=== PATIENT | male | born 1950 | race Caucasian/White ===

== ENCOUNTER 2016-08-19 13:42 | Inpatient (IN) | payer MEDICARE ==
[~2016-08-19] VITALS: Ht 175.3 cm; Wt 69.4 kg
--- NOTE | 2016-08-19 13:42 | NUR ---
Patient is accepted by Dr Hein & Dr Aaron Snell for geriartric psych admission. This patient is on 5150 psych HOLD for gravely disabled since 1145 today.
[2016-08-19] MEDS ORDERED: LOPE-156 PO (13:55)
[2016-08-19] MEDS ORDERED: LORA0.5T PO (13:55)
[2016-08-19] MEDS ORDERED: METF500T4 PO (13:55)
[2016-08-19] MEDS ORDERED: HYDR12.5 PO (13:55)
[2016-08-19] MEDS ORDERED: ENAL2.5T PO (13:55)
[2016-08-19] MEDS ORDERED: AMIT25TA9 PO (13:55)
[2016-08-19] MEDS ORDERED: ZOLP10TA6 PO (13:55)
[2016-08-19] MEDS ORDERED: GLIP10TA11 PO (13:55)
[2016-08-19] MEDS ORDERED: FLUP5TAB PO (13:55)
[2016-08-19] MEDS ORDERED: AMLO10TA4 PO (13:55)
[2016-08-19] MEDS ORDERED: DEXA4TAB PO (13:55)
--- NOTE | 2016-08-19 13:57 | NUR ---
1345- Medically cleared by Dr Quita Barahona. Nursing hands off report given to RN Zenda, pending admitting papers from ER registration [facility] at this time
--- NOTE | 2016-08-19 14:09 | NUR ---
Parents x2 are at bedside.
--- NOTE | 2016-08-19 14:22 | NUR ---
Patient voided by urinal, no acute change in condition seen- still waiting for admitting papers from ER regiatration staff [facility]
--- NOTE | 2016-08-19 14:30 | NUR ---
Received pt here in [facility]. Pt alert and oriented x 3. Pt very anxious. Pt states "IM already . Burry me alive now. Just give me the cyanide." Noted skin tear on left lower extremity 1 1/2 x 1cm x 0cm, scab on left buttocks thats dried up, and dulce knee redness. Pt denies any c/o pain. Pt was showered by DESULPHURING OPERATOR due to pt has very dirty foot and disheveled look. forest and conservation worker jhonatan done, wound care consult done, Called pt liliana choudhary and verified that pt refused pnm and flu vaccine.
[2016-08-19] MEDS ORDERED: MAGNESIUM HYDROXIDE 30 ML LIQUID UDC PO PRN (15:00)
[2016-08-19] MEDS ORDERED: MAG HYDROX/AL HYDROX/SIMETH 30 ML LIQUID UDC PO PRN (15:00)
[2016-08-19 15:01] VITALS: BP 130/69
[2016-08-19] MEDS ORDERED: LOPERAMIDE HCL 2 MG CAPSULE PO PRN (17:15)
--- NOTE | 2016-08-19 18:00 | NUR ---
Pt states "i dont want to im getting social security." Pt has good appetite. Second call made by SELENE to dr jesús enrique for admitting orders. Pt is in no acute distress. Call light is within reach. Pt ambulatory with good gait and balance.
[2016-08-19] MEDS: METFORMIN HCL 500 MG TABLET PO SCH (18:09)
--- NOTE | 2016-08-19 20:07 | NUR ---
patient received resting comfortably in bed. observed to be disorganized, states "I smoked 20 cigarettes, I am already ". Insight and judgement poor. No aggressive or combative behavior noted. Pressured speech. Refuse vital signs despite education. No acute distress noted. Safety measures maintained.
[2016-08-19] MEDS: TEMAZEPAM 7.5 MG CAPSULE PO PRN (22:53)
[2016-08-19 23:50] VITALS: BP 155/102
[2016-08-19] MEDS: ACETAMINOPHEN 325 MG TABLET PO PRN (23:55)
[2016-08-19] MEDS: CLONAZEPAM 0.5 MG TABLET PO PRN (23:55)
--- NOTE | 2016-08-19 23:55 | NUR ---
PATIENT OBSERVED TO BE ANXIOUS AND RESTLESS, PATIENT ALSO PACING UNIT AND SOMEWHAT IRRITABLE. PT GIVEN KLONOPIN AND TYLENOL PRN ORDERED. COMFORT MEASURES PROVIDED. PATIENT ASSISTED TO CHAIR IN NEAR NURSING STATION. WILL CONTINUE TO MONITOR FOR SAFETY.
[2016-08-20 01:10] VITALS: BP 131/61
--- NOTE | 2016-08-20 01:13 | NUR ---
PATIENT VOMITING EPISODE X1, OBSERVED TO BE MOSTLY WATER VOMITED. B/P CHECKED 131/60 HEART RATE 74. OBSERVED TO BE LESS ANXIOUS. AWAITING CALL BACK FROM MD.
--- NOTE | 2016-08-20 01:22 | NUR ---
MD MADE AWARE OF PATIENT STATUS, ORDERED CBC, CMP, TROPONIN, MAGNESIUM AND PHOSPHORUS LABS IN AM.
--- NOTE | 2016-08-20 03:00 | NUR ---
PATIENT REMAINS AWAKE, PACING AND ANXIOUS. NO AGGRESSIVE OR COMBATIVE BEHAVIOR. WILL CONTINUE TO MONITOR FOR SAFETY.
[2016-08-20] MEDS: CLONAZEPAM 0.5 MG TABLET PO PRN ×2 (06:16→12:25)
[2016-08-20] MEDS: glipiZIDE 10 MG TABLET PO SCH ×2 (07:30→18:24)
[2016-08-20 07:46] LABS: BASOPHILS % (AUTO) 0.3 % (0.0-2.0); EOSINOPHILS # (AUTO) 0.1 K/uL (0.0-0.7); EOSINOPHILS % (AUTO) 0.9 % (0.0-7.0); HEMATOCRIT 41.3 % (40-50); HEMOGLOBIN 14.4 G/DL (14.0-18.0); LYMPHOCYTES # (AUTO) 1.3 K/UL (0.8-4.8); LYMPHOCYTES % (AUTO) 8.3 % (20.5-51.5); MEAN CORPUSCULAR HEMOGLOBIN 30.9 UUG (27.0-31.0); MEAN CORPUSCULAR HGB CONC 35 g/dL (32.0-37.0); MEAN CORPUSCULAR VOLUME 88.7 FL (82.0-92.0); MONOCYTES # (AUTO) 0.9 K/UL (0.1-1.30); MONOCYTES % (AUTO) 6.1 % (0.0-11.0); NEUTROPHILS # (AUTO) 12.9 K/UL (1.8-8.9); NEUTROPHILS % (AUTO) 84.4 % (38.5-71.5); PLATELET COUNT (AUTO) 414 K/UL (150-450); RED BLOOD CELL COUNT(AUTO) 4.65 MIL/UL (4.7-6.1); WHITE BLOOD COUNT (AUTO) 15.2 K/UL (4.0-11.2)
[2016-08-20 07:48] VITALS: BP 140/62
[2016-08-20 08:07] LABS: BILIRUBIN,TOTAL 0.7 mg/dL (0.2-1.0); CREATININE 0.8 mg/dL (0.6-1.3); MAGNESIUM 1.9 mg/dL (1.8-2.4); POTASSIUM 3.7 mmol/L (3.5-5.1); TOTAL PROTEIN, SERUM 7.9 g/dL (6.4-8.2)
[2016-08-20] MEDS ORDERED: DEXAMETHASONE 4 MG TABLET PO SCH (09:00)
--- NOTE | 2016-08-20 09:16 | NUR ---
0700-Report received from outgoing nurse. The patient was alert, verbally responsive, oriented x 1/2, and showed no signs of pain/discomfort. 0800-AM meds were give to the patient. He took his medication without incident. He stated that he had a knife and was ready to defend himself. The patient still has delusions. He has not made any threats to the staff or other patients. He appears anxious and ambulates frequently around the unit at times entering the nursing station or trying to enter another patient's room.
[2016-08-20] MEDS: METFORMIN HCL 500 MG TABLET PO SCH ×2 (10:45→18:28)
[2016-08-20] MEDS: AMLODIPINE 10 MG TABLET PO SCH (10:53)
[2016-08-20] MEDS: NICOTINE 21 MG/24HR PATCH TD SCH (10:59)
[2016-08-20] MEDS: ACETAMINOPHEN 325 MG TABLET PO PRN (12:25)
[2016-08-20] MEDS: HYDROCHLOROTHIAZIDE 12.5 MG CAPSULE PO SCH (12:59)
[2016-08-20] MEDS: ENALAPRIL 2.5 MG TABLET PO SCH (13:00)
[2016-08-20] MEDS: BENZTROPINE MESYLATE 1 MG TABLET PO SCH ×2 (13:36→18:24)
[2016-08-20] MEDS: AMITRIPTYLINE HCL 25 MG TABLET PO SCH ×2 (13:37→18:24)
[2016-08-20] MEDS: FLUPHENAZINE HCL 5 MG TABLET PO SCH ×2 (13:39→18:24)
--- NOTE | 2016-08-20 14:15 | NUR ---
Initial discharge instructions: The patient resides at [facility] [[address], [place] [address] ]. Spoke with the patient's father John Vo who stated that he would like for the patient to return to the facility. Spoke with the patient who stated that he does not want to return because "there is going to be a nuclear war." Spoke with peoplesoft administrator Dr. Rico at the facility who stated that they will accept the patient back once he is stable and ready for discharge. SS will speak with the patient, family, and MD regarding most appropriate discharge plans. SS will form a safe and proper discharge.
--- NOTE | 2016-08-20 14:21 | NUR ---
1000-The patient was ambulating in the hallways. At times he became anxious. 1130-The patient ate his lunch. No incidents noted. 1215-The patient was given medication of clonidin and Tylenol. 1300-The patient was given his new order of medication to calm him. 1400-The patient was sleeping and very calm after the medication was given.
[2016-08-20 15:12] VITALS: BP 136/72
[2016-08-20] MEDS: BLOOD SUGAR DIAGNOSTIC 1 EACH STRIP VI SCH (17:03)
[2016-08-20 20:22] VITALS: BP 130/68
--- NOTE | 2016-08-21 00:55 | NUR ---
PT C/O PRADO, TYLENOL GIVEN ORDERED, WILL CONTINUE TO MONITOR.
[2016-08-21] MEDS: CLONAZEPAM 0.5 MG TABLET PO PRN ×3 (00:56→17:20)
[2016-08-21] MEDS: ACETAMINOPHEN 325 MG TABLET PO PRN (00:56)
--- NOTE | 2016-08-21 01:00 | NUR ---
PT AWAKE AND OUT IN THE HALLWAY, ASKING FOR HIS PILLS, OBSERVED TO BE WET AND SMELLING OF VERY STRONG URINE, PT REDIRECTED TO THE BATHROOM AND ASKED TO CLEAN UP, BEDDINGS CHANGED, KLONOPIN GIVEN ORDERED, WILL CONTINUE TO MONITOR.
--- NOTE | 2016-08-21 01:24 | NUR ---
PT BACK IN BED SLEEPING, NO DISTRESS NOTED, WILL CONTINUE TO MONITOR.
[2016-08-21] MEDS: BLOOD SUGAR DIAGNOSTIC 1 EACH STRIP VI SCH ×2 (06:59→17:13)
[2016-08-21 07:30] VITALS: BP_SYST 103; BP_SYST 125; BP_DIAS 64; BP_DIAS 68
[2016-08-21] MEDS: METFORMIN HCL 500 MG TABLET PO SCH ×2 (08:31→17:19)
[2016-08-21] MEDS: BENZTROPINE MESYLATE 1 MG TABLET PO SCH ×2 (08:31→17:19)
[2016-08-21] MEDS: AMITRIPTYLINE HCL 25 MG TABLET PO SCH ×2 (08:31→17:19)
[2016-08-21] MEDS: FLUPHENAZINE HCL 5 MG TABLET PO SCH ×2 (08:31→17:19)
[2016-08-21] MEDS: glipiZIDE 10 MG TABLET PO SCH ×2 (08:32→17:19)
[2016-08-21] MEDS: AMLODIPINE 10 MG TABLET PO SCH (08:33)
[2016-08-21] MEDS: HYDROCHLOROTHIAZIDE 12.5 MG CAPSULE PO SCH (08:33)
[2016-08-21] MEDS: ENALAPRIL 2.5 MG TABLET PO SCH (08:33)
[2016-08-21] MEDS: NICOTINE 21 MG/24HR PATCH TD SCH (08:41)
--- NOTE | 2016-08-21 09:30 | NUR ---
PATIENT IS ANXIOUS AND RESTLESS FEELS DEPRESSED WAS MEDICATED WITH KLONOPIN ORDERED PATIENT REASSURED AND WILL OBSERVE.
--- NOTE | 2016-08-21 10:45 | NUR ---
PATIENT HAS AN ORDER FOR CT HEAD BUT WHEN THE RADIOLOGY PERSON CAME TO PICK HIM UP HE REFUSED DESPITE ALL ATTEMPTS AND EXPLAINATION THAT THE DOCTOR ORDERED IT TO HELP WITH HIS TREATMENT.KAYLYN IRELAND NOTIFIED THAT HE IS REFUSING LAB DRAW AND CT HEAD WITH NO NEW ORDERS AT THIS TIME.
--- NOTE | 2016-08-21 15:27 | NUR ---
PATIENT SEEN AND EXAMINED BY KAYLYN RAIL LAYER WITH NEW ORDERS AND NOTED
[2016-08-21 16:00] VITALS: BP 128/59
--- NOTE | 2016-08-21 18:00 | NUR ---
DR CARLSON HERE TO SEE PATIENT WITH ORDER TO PLACE PATIENT ON 14 DAY HOLD KLONOPIN GIVEN 2 TIMES TODAY.PATIENT IS CURRENTLY SITTING ON THE CHAIR BY THE NURSES STATION QUIETER AT THIS TIME AND WILL CONTINUE TO OBSERVE.
[2016-08-21 19:59] VITALS: BP 116/74
[2016-08-21] MEDS: TEMAZEPAM 7.5 MG CAPSULE PO PRN (21:00)
--- NOTE | 2016-08-21 22:26 | NUR ---
PATIENT ALERT/ORIENTED X1 PATIENT CONFUSED, DISORGANIZED WITH PRESSURED SPEECH. PATIENT AMBULATES HALLWAY AND ACTIVITIES ROOM. PATIENT EASILY AGITATED IS REDIRECTABLE. PATIENT COMPLAINT WITH MEDICATION.
[2016-08-22] MEDS: CLONAZEPAM 0.5 MG TABLET PO PRN (04:13)
[2016-08-22 07:30] VITALS: BP 118/68
[2016-08-22 07:34] LABS: BASOPHILS % (AUTO) 0.4 % (0.0-2.0); EOSINOPHILS # (AUTO) 0.1 K/uL (0.0-0.7); EOSINOPHILS % (AUTO) 1.4 % (0.0-7.0); HEMATOCRIT 39.8 % (40-50); HEMOGLOBIN 13.7 G/DL (14.0-18.0); LYMPHOCYTES # (AUTO) 1.3 K/UL (0.8-4.8); LYMPHOCYTES % (AUTO) 19.8 % (20.5-51.5); MEAN CORPUSCULAR HEMOGLOBIN 30.3 UUG (27.0-31.0); MEAN CORPUSCULAR HGB CONC 34 g/dL (32.0-37.0); MEAN CORPUSCULAR VOLUME 88.1 FL (82.0-92.0); MONOCYTES # (AUTO) 0.7 K/UL (0.1-1.30); MONOCYTES % (AUTO) 10.5 % (0.0-11.0); NEUTROPHILS # (AUTO) 4.6 K/UL (1.8-8.9); NEUTROPHILS % (AUTO) 67.9 % (38.5-71.5); PLATELET COUNT (AUTO) 368 K/UL (150-450); RED BLOOD CELL COUNT(AUTO) 4.51 MIL/UL (4.7-6.1); WHITE BLOOD COUNT (AUTO) 6.7 K/UL (4.0-11.2)
[2016-08-22 07:47] LABS: BILIRUBIN,TOTAL 0.3 mg/dL (0.2-1.0); CREATININE 0.8 mg/dL (0.6-1.3); MAGNESIUM 1.9 mg/dL (1.8-2.4); PHOSPHOROUS 3.7 mg/dL (2.5-4.9); POTASSIUM 3.5 mmol/L (3.5-5.1); TOTAL PROTEIN, SERUM 7.2 g/dL (6.4-8.2)
[2016-08-22] MEDS: glipiZIDE 10 MG TABLET PO SCH (07:51)
[2016-08-22] MEDS: BLOOD SUGAR DIAGNOSTIC 1 EACH STRIP VI SCH ×4 (07:52→20:26)
[2016-08-22 08:01] LABS: THYROID STIMULATING HORMONE 2.382 mIU/mL (0.358-3.740)
[2016-08-22] MEDS: METFORMIN HCL 500 MG TABLET PO SCH ×2 (08:39→17:40)
[2016-08-22] MEDS: HYDROCHLOROTHIAZIDE 12.5 MG CAPSULE PO SCH (08:39)
[2016-08-22] MEDS: AMLODIPINE 10 MG TABLET PO SCH (08:39)
[2016-08-22] MEDS: FLUPHENAZINE HCL 5 MG TABLET PO SCH ×2 (08:40→17:33)
[2016-08-22] MEDS: NICOTINE 21 MG/24HR PATCH TD SCH (08:40)
[2016-08-22] MEDS: AMITRIPTYLINE HCL 25 MG TABLET PO SCH ×2 (08:40→17:32)
[2016-08-22] MEDS: BENZTROPINE MESYLATE 1 MG TABLET PO SCH ×2 (08:40→17:32)
[2016-08-22] MEDS: ENALAPRIL 2.5 MG TABLET PO SCH (08:48)
[2016-08-22] MEDS ORDERED: DEXTROSE 50% 50 ML DISP.SYRIN IV PRN (10:15)
[2016-08-22 16:00] VITALS: BP_SYST 122; BP_SYST 125; BP_DIAS 63; BP_DIAS 71
[2016-08-22] MEDS: TEMAZEPAM 7.5 MG CAPSULE PO PRN (21:20)
--- NOTE | 2016-08-22 21:23 | NUR ---
PATIENT ALERT/ORIENTED X1-2 PATIENT CONFUSED, DISORGANIZED WITH PRESSURED SPEECH. PATIENT AMBULATES HALLWAY AND ACTIVITIES ROOM. PATIENT EASILY AGITATED IS REDIRECTABLE. PATIENT COMPLAINT WITH MEDICATION. NO AGGRESSIVE OR COMBATIVE BEHAVIOR NOTED WILL CONTINUE TO MONITOR.
[2016-08-22 21:27] VITALS: BP 121/74
[2016-08-23] MEDS: CLONAZEPAM 0.5 MG TABLET PO PRN (04:06)
[2016-08-23] MEDS: BLOOD SUGAR DIAGNOSTIC 1 EACH STRIP VI SCH ×4 (07:02→20:55)
[2016-08-23 07:30] VITALS: BP 140/67
[2016-08-23] MEDS: FLUPHENAZINE HCL 5 MG TABLET PO SCH ×2 (08:41→17:24)
[2016-08-23] MEDS: HYDROCHLOROTHIAZIDE 12.5 MG CAPSULE PO SCH (08:41)
[2016-08-23] MEDS: BENZTROPINE MESYLATE 1 MG TABLET PO SCH ×2 (08:41→17:24)
[2016-08-23] MEDS: AMITRIPTYLINE HCL 25 MG TABLET PO SCH ×2 (08:41→17:24)
[2016-08-23] MEDS: METFORMIN HCL 500 MG TABLET PO SCH ×2 (08:41→17:24)
[2016-08-23] MEDS: AMLODIPINE 10 MG TABLET PO SCH (08:41)
[2016-08-23] MEDS: ENALAPRIL 2.5 MG TABLET PO SCH (08:42)
[2016-08-23] MEDS: NICOTINE 21 MG/24HR PATCH TD SCH (08:42)
[2016-08-23 15:14] VITALS: BP 117/67
[2016-08-23] MEDS: TEMAZEPAM 7.5 MG CAPSULE PO PRN (20:51)
[2016-08-24] MEDS: CLONAZEPAM 0.5 MG TABLET PO PRN (06:41)
[2016-08-24] MEDS: BLOOD SUGAR DIAGNOSTIC 1 EACH STRIP VI SCH ×4 (06:54→20:40)
[2016-08-24 07:30] VITALS: BP 142/74
[2016-08-24 08:13] LABS: *BILIRUBIN,URIN NEGATIVE (NEGATIVE); *BLOOD, URINE NEGATIVE (NEGATIVE); *CLARITY,URINE CLEAR (CLEAR); *KETONES,URINE NEGATIVE (NEGATIVE); *PROTEIN,URINE NEGATIVE (NEGATIVE); *UROBILINOGEN,URINE 0.2 E.U./dl (NORMAL); LEUKOCYTE ESTERASE ,URINE NEGATIVE (NEGATIVE); NITRITE, URINE NEGATIVE (NEGATIVE); PH,URINE 6.5 (5.0-8.0); UGLUCOSE NEGATIVE (NEGATIVE)
[2016-08-24 08:23] LABS: *COLOR,URINE LIGHT YELLOW (YELLOW)
[2016-08-24 08:27] LABS: RBC,URINE NONE SEEN /HPF (0-3); WBC,URINE 0-3 /HPF (0-3)
[2016-08-24 08:28] LABS: BACTERIA,URINE NONE SEEN /HPF (NONE SEEN); SQUAMOUS EPITHELIAL CELL,UR FEW /HPF (NONE SEEN)
[2016-08-24] MEDS: ENALAPRIL 2.5 MG TABLET PO SCH (08:32)
[2016-08-24] MEDS: FLUPHENAZINE HCL 5 MG TABLET PO SCH ×2 (08:33→16:54)
[2016-08-24] MEDS: METFORMIN HCL 500 MG TABLET PO SCH ×2 (08:33→17:01)
[2016-08-24] MEDS: NICOTINE 21 MG/24HR PATCH TD SCH (08:33)
[2016-08-24] MEDS: HYDROCHLOROTHIAZIDE 12.5 MG CAPSULE PO SCH (08:34)
[2016-08-24] MEDS: BENZTROPINE MESYLATE 1 MG TABLET PO SCH ×2 (08:34→16:54)
[2016-08-24] MEDS: AMLODIPINE 10 MG TABLET PO SCH (08:34)
[2016-08-24] MEDS: AMITRIPTYLINE HCL 25 MG TABLET PO SCH ×2 (08:34→16:54)
--- NOTE | 2016-08-24 11:29 | NUR ---
PT REFUSED BLOOD SUGAR CHECKED. STATED "GO AWAY, I DON'T WANT IT". OFFERED X2, PT STRONGLY REFUSED. WILL CONTINUE TO MONITOR.
--- NOTE | 2016-08-24 14:56 | NUR ---
GPS RN NOTE PT REFUSED WOUND TREATMENT ON LEFT LEG. EXPLAIN RISK AND BENEFITS, PT STRONGLY REFUSED. WILL MONITOR
[2016-08-24 15:00] VITALS: BP 126/83
--- NOTE | 2016-08-24 17:33 | NUR ---
GPS RN NOTE PT REFUSED PM ACCUCHECK. PT STATED "GO AWAY YOU, I DON'T WANT IT". PACING IN THE HALLWAY, BUT REDIRECTABLE. WILL MONITOR AND OBSERVE.
[2016-08-24 20:04] VITALS: BP 136/80
[2016-08-24] MEDS: TEMAZEPAM 7.5 MG CAPSULE PO PRN (20:41)
[2016-08-25] MEDS: BLOOD SUGAR DIAGNOSTIC 1 EACH STRIP VI SCH ×4 (06:37→20:52)
[2016-08-25 07:30] VITALS: BP 142/65
[2016-08-25] MEDS: FLUPHENAZINE HCL 5 MG TABLET PO SCH ×2 (08:46→16:12)
[2016-08-25] MEDS: METFORMIN HCL 500 MG TABLET PO SCH ×2 (08:46→17:06)
[2016-08-25] MEDS: ENALAPRIL 2.5 MG TABLET PO SCH (08:46)
[2016-08-25] MEDS: BENZTROPINE MESYLATE 1 MG TABLET PO SCH ×2 (08:46→16:12)
[2016-08-25] MEDS: HYDROCHLOROTHIAZIDE 12.5 MG CAPSULE PO SCH (08:46)
[2016-08-25] MEDS: AMLODIPINE 10 MG TABLET PO SCH (08:46)
[2016-08-25] MEDS: AMITRIPTYLINE HCL 25 MG TABLET PO SCH ×2 (08:46→16:12)
[2016-08-25] MEDS: NICOTINE 21 MG/24HR PATCH TD SCH (08:46)
[2016-08-25 15:27] VITALS: BP 119/48
[2016-08-25 19:57] VITALS: BP 122/68
[2016-08-25] MEDS: TEMAZEPAM 7.5 MG CAPSULE PO PRN (23:38)
[2016-08-26] MEDS: BLOOD SUGAR DIAGNOSTIC 1 EACH STRIP VI SCH ×4 (06:41→20:13)
[2016-08-26 07:30] VITALS: BP 108/56
[2016-08-26] MEDS: HYDROCHLOROTHIAZIDE 12.5 MG CAPSULE PO SCH (08:02)
[2016-08-26] MEDS: AMITRIPTYLINE HCL 25 MG TABLET PO SCH ×2 (08:02→16:11)
[2016-08-26] MEDS: FLUPHENAZINE HCL 5 MG TABLET PO SCH ×2 (08:02→20:13)
[2016-08-26] MEDS: BENZTROPINE MESYLATE 1 MG TABLET PO SCH ×2 (08:02→16:11)
[2016-08-26] MEDS: NICOTINE 21 MG/24HR PATCH TD SCH (08:03)
[2016-08-26] MEDS: AMLODIPINE 10 MG TABLET PO SCH (08:03)
[2016-08-26] MEDS: METFORMIN HCL 500 MG TABLET PO SCH ×2 (08:03→17:01)
[2016-08-26] MEDS: ENALAPRIL 2.5 MG TABLET PO SCH (08:03)
[2016-08-26 16:38] VITALS: BP 136/62
[2016-08-26 20:00] VITALS: BP 162/74
--- NOTE | 2016-08-26 22:40 | NUR ---
GPS/RN- FREQUENTLY PACING UP AND DOWN HALLWAY, OFFERED PRN INSOMNIA, REFUSED AT THIS TIME CONTINUE TO MONITOR
--- NOTE | 2016-08-27 02:03 | NUR ---
GPS/RN- PATIENT SLEEPING IN BED NO DISTRESS NOTED
[2016-08-27] MEDS: BLOOD SUGAR DIAGNOSTIC 1 EACH STRIP VI SCH ×4 (06:32→20:23)
[2016-08-27 07:41] VITALS: BP 119/67
[2016-08-27] MEDS: METFORMIN HCL 500 MG TABLET PO SCH ×2 (08:00→17:17)
[2016-08-27] MEDS: AMITRIPTYLINE HCL 25 MG TABLET PO SCH ×2 (09:00→17:17)
[2016-08-27] MEDS: NICOTINE 21 MG/24HR PATCH TD SCH (09:00)
[2016-08-27] MEDS: HYDROCHLOROTHIAZIDE 12.5 MG CAPSULE PO SCH (09:00)
[2016-08-27] MEDS: AMLODIPINE 10 MG TABLET PO SCH (09:00)
[2016-08-27] MEDS: BENZTROPINE MESYLATE 1 MG TABLET PO SCH ×3 (09:00→17:17)
[2016-08-27] MEDS: ENALAPRIL 2.5 MG TABLET PO SCH (09:00)
[2016-08-27] MEDS: FLUPHENAZINE HCL 5 MG TABLET PO SCH ×2 (09:00→20:35)
[2016-08-27 15:37] VITALS: BP 138/66
--- NOTE | 2016-08-27 18:18 | NUR ---
visible on unit pacing up and down with delusional statements . eating and med compliant in afternoon
[2016-08-27 20:18] VITALS: BP 133/68
[2016-08-27] MEDS: TEMAZEPAM 7.5 MG CAPSULE PO PRN (23:07)
[2016-08-28] MEDS: BLOOD SUGAR DIAGNOSTIC 1 EACH STRIP VI SCH ×4 (06:20→21:00)
[2016-08-28 07:30] VITALS: BP 147/73
[2016-08-28] MEDS: METFORMIN HCL 500 MG TABLET PO SCH ×2 (07:59→18:05)
[2016-08-28] MEDS: NICOTINE 21 MG/24HR PATCH TD SCH (08:04)
[2016-08-28] MEDS: HYDROCHLOROTHIAZIDE 12.5 MG CAPSULE PO SCH (08:04)
[2016-08-28] MEDS: AMITRIPTYLINE HCL 25 MG TABLET PO SCH ×2 (08:04→18:05)
[2016-08-28] MEDS: BENZTROPINE MESYLATE 1 MG TABLET PO SCH ×2 (08:04→18:05)
[2016-08-28] MEDS: AMLODIPINE 10 MG TABLET PO SCH (08:05)
[2016-08-28] MEDS: FLUPHENAZINE HCL 5 MG TABLET PO SCH ×2 (08:05→21:04)
[2016-08-28] MEDS: ENALAPRIL 2.5 MG TABLET PO SCH (09:00)
[2016-08-28 15:32] VITALS: BP 122/57
[2016-08-28 20:19] VITALS: BP 138/73
--- NOTE | 2016-08-28 21:33 | NUR ---
Patient took all his night p.o meds but refused night accucheck blood sugar test.
[2016-08-28] MEDS: TEMAZEPAM 7.5 MG CAPSULE PO PRN (22:06)
[2016-08-29] MEDS: BLOOD SUGAR DIAGNOSTIC 1 EACH STRIP VI SCH ×2 (06:39→12:04)
[2016-08-29 07:30] VITALS: BP 126/69
[2016-08-29] MEDS: METFORMIN HCL 500 MG TABLET PO SCH ×2 (08:00→10:33)
[2016-08-29] MEDS: HYDROCHLOROTHIAZIDE 12.5 MG CAPSULE PO SCH ×2 (09:00→10:34)
[2016-08-29] MEDS: AMLODIPINE 10 MG TABLET PO SCH ×2 (09:00→10:33)
[2016-08-29] MEDS: NICOTINE 21 MG/24HR PATCH TD SCH ×2 (09:00→10:31)
[2016-08-29] MEDS: BENZTROPINE MESYLATE 1 MG TABLET PO SCH ×2 (09:00→10:37)
[2016-08-29] MEDS: AMITRIPTYLINE HCL 25 MG TABLET PO SCH ×2 (09:00→10:38)
[2016-08-29] MEDS: FLUPHENAZINE HCL 5 MG TABLET PO SCH ×2 (09:00→10:34)
[2016-08-29] MEDS: ENALAPRIL 2.5 MG TABLET PO SCH ×2 (09:00→10:31)
[2016-08-29 10:33] VITALS: BP 126/69
--- NOTE | 2016-08-29 12:21 | NUR ---
DC Note: The patient will be discharged today to [facility] [[address] [place] [address];[phone]] via ambulance at 1:00 pm. Please schedule an ambulance for the patient. SW spoke Cintia at the facility who stated she would accept the patient today. Spoke with the patient's father John Vo Sr. [home: cell: ] and he is aware and agreeable with the discharge plan. Patient will follow-up with (Psychiatrist) and (Auto Striper) at the facility. For smoking cessation, patient was referred to [employer] [id number]-[id number] and [employer] [phone].
--- NOTE | 2016-08-29 15:18 | NUR ---
Patient is being discharged to [facility]. Pt's father John Vo Sr, is aware and is in agreement. VS are stable, pt denies distress. Valuables are returned. Pt refused to sign discharge paperwork.
== END 2016-08-29 15:00 | DRG 885 ==
LOC: ER 13:45 → GPS 14:20
PROVIDERS: ADMIT Psychiatry & Neurology Psychiatry; ATTEND Psychiatry & Neurology Psychiatry
DX: F20.0 Paranoid schizophrenia (principal); E11.65 Type 2 diabetes mellitus with hyperglycemia; E87.1 Hypo-osmolality and hyponatremia; F29 Unspecified psychosis not due to a substance or known physiological condition; F17.200 Nicotine dependence, unspecified, uncomplicated; D72.829 Elevated white blood cell count, unspecified; F41.9 Anxiety disorder, unspecified; F32.9 Major depressive disorder, single episode, unspecified; J44.9 Chronic obstructive pulmonary disease, unspecified; Z85.51 Personal history of malignant neoplasm of bladder; Z91.19 Patient's noncompliance with other medical treatment and regimen; J38.3 Other diseases of vocal cords; I10 Essential (primary) hypertension; Z73.6 Limitation of activities due to disability; D64.9 Anemia, unspecified; E11.649 Type 2 diabetes mellitus with hypoglycemia without coma
CPT/HCPCS: 36415; 70030-TC; 83735; 84100; 84443; 85025; 87086; 97161; A4663; J8540

== ENCOUNTER 2017-06-04 21:44 | Inpatient (IN) | payer MEDICARE ==
[~2017-06-04] VITALS: Ht 162.6 cm; Wt 69.9 kg
[~2017-06-04 21:44] MED LIST: AMLO10TA4 PO; DEXA4TAB PO; ENAL2.5T PO; GLIP10TA11 PO; HYDR12.5 PO; LOPE-156 PO; METF500T6 PO
[2017-06-04 22:35] LABS: BASOPHILS % (AUTO) 0.6 % (0.0-2.0); EOSINOPHILS # (AUTO) 0.2 K/uL (0.0-0.7); EOSINOPHILS % (AUTO) 2.5 % (0.0-7.0); HEMATOCRIT 38.7 % (36.7-47.1); HEMOGLOBIN 13.5 g/dL (12.5-16.3); LYMPHOCYTES # (AUTO) 1.6 K/uL (20.0-40.0); LYMPHOCYTES % (AUTO) 20.9 % (20.5-51.5); MEAN CORPUSCULAR HEMOGLOBIN 30.7 uug (23.8-33.4); MEAN CORPUSCULAR HGB CONC 35 g/dL (32.5-36.3); MEAN CORPUSCULAR VOLUME 88.3 fL (73.0-96.2); MONOCYTES # (AUTO) 0.9 K/uL (2.0-10.0); MONOCYTES % (AUTO) 11.7 % (0.0-11.0); NEUTROPHILS # (AUTO) 4.8 K/uL (1.8-8.9); NEUTROPHILS % (AUTO) 64.3 % (38.5-71.5); PLATELET COUNT (AUTO) 283 K/uL (152-348); RED BLOOD CELL COUNT(AUTO) 4.38 MIL/uL (4.06-5.63); WHITE BLOOD COUNT (AUTO) 7.5 K/uL (3.6-10.2)
[2017-06-04 22:42] LABS: ALANINE AMINOTRANSFERASE 82 U/L (16-63); ALKALINE PHOSPHATASE 78 U/L (50-136); ASPARTATE AMINOTRANSFERASE 38 U/L (15-37); BILIRUBIN,DIRECT 0.1 mg/dL (0.0-0.2); BILIRUBIN,TOTAL 0.4 mg/dL (0.2-1.0); CARBON DIOXIDE 31 mmol/L (21-32); CHLORIDE 95 mmol/L (98-107); CREATININE 0.8 mg/dL (0.6-1.3); GLUCOSE 169 mg/dL (74-106); POTASSIUM 3.7 mmol/L (3.5-5.1); TOTAL PROTEIN, SERUM 7.6 g/dL (6.4-8.2); UREA NITROGEN, BLOOD 12 mg/dL (7-18)
[2017-06-04 22:44] LABS: ACETAMINOPHEN < 2.0 ug/mL (10-30)
[2017-06-04 22:52] LABS: ETHANOL < 3 MG/DL (0-0)
[2017-06-04] MEDS ORDERED: AMIT25TA24 PO (22:53)
[2017-06-04] MEDS ORDERED: ATOR10TA PO (22:53)
[2017-06-04] MEDS ORDERED: FLUP10TA PO ×2 (22:53)
[2017-06-04] MEDS ORDERED: DOCU100C36 PO (22:53)
[2017-06-04] MEDS ORDERED: ACET325T53 PO (22:53)
[2017-06-04] MEDS ORDERED: BENZ1TAB7 PO (22:53)
[2017-06-04] MEDS ORDERED: MAGN400O6 PO (22:53)
[2017-06-04 22:58] LABS: THYROID STIMULATING HORMONE 5.031 mIU/mL (0.358-3.740)
[2017-06-04 23:14] LABS: *BILIRUBIN,URIN NEGATIVE (NEGATIVE); *BLOOD, URINE NEGATIVE (NEGATIVE); *CLARITY,URINE CLEAR (CLEAR); *COLOR,URINE YELLOW (YELLOW); *KETONES,URINE NEGATIVE (NEGATIVE); *PROTEIN,URINE NEGATIVE (NEGATIVE); *UROBILINOGEN,URINE 0.2 E.U./dl (NORMAL); LEUKOCYTE ESTERASE ,URINE NEGATIVE (NEGATIVE); NITRITE, URINE NEGATIVE (NEGATIVE); UGLUCOSE NEGATIVE (NEGATIVE)
[2017-06-04 23:22] LABS: BACTERIA,URINE NONE SEEN /HPF (NONE SEEN); RBC,URINE NONE SEEN /HPF (0-3); SQUAMOUS EPITHELIAL CELL,UR FEW /HPF (NONE SEEN); WBC,URINE 0-3 /HPF (0-3)
[2017-06-04 23:23] LABS: *AMPHETAMINE, URINE NEGATIVE (NEGATIVE); *BARBITURATE, URINE NEGATIVE (NEGATIVE); *CANNABINOID, URINE NEGATIVE (NEGATIVE); *COCCAINE, URINE NEGATIVE (NEGATIVE); *OPIATE, URINE NEGATIVE (NEGATIVE); *PHENCYCLIDINE SCREEN,URINE NEGATIVE (NEGATIVE)
[2017-06-04 23:45] VITALS: BP 126/67
[2017-06-05] MEDS ORDERED: ACETAMINOPHEN 325 MG TABLET PO PRN ×2 (00:15→10:00)
[2017-06-05] MEDS ORDERED: MAGNESIUM HYDROXIDE 30 ML LIQUID UDC PO PRN ×2 (00:15→10:00)
[2017-06-05] MEDS ORDERED: MAG HYDROX/AL HYDROX/SIMETH 30 ML LIQUID UDC PO PRN (00:15)
[2017-06-05] MEDS ORDERED: LORAZEPAM 0.5 MG TABLET PO PRN (00:15)
[2017-06-05] MEDS: TEMAZEPAM 7.5 MG CAPSULE PO PRN ×2 (00:24→21:35)
[2017-06-05 07:30] VITALS: BP 128/65
[2017-06-05 16:32] VITALS: BP 147/59
[2017-06-05] MEDS: glipiZIDE 10 MG TABLET PO SCH (18:12)
[2017-06-05] MEDS: METFORMIN HCL 500 MG TABLET PO SCH (18:13)
[2017-06-05] MEDS ORDERED: FLUPHENAZINE HCL 1 MG TABLET PO SCH (20:00)
[2017-06-05 20:14] VITALS: BP 142/65
[2017-06-05] MEDS: FLUPHENAZINE HCL 5 MG TABLET PO SCH (20:21)
[2017-06-05] MEDS: ATORVASTATIN 10 MG TABLET PO SCH (20:21)
[2017-06-06 07:30] VITALS: BP 139/72
[2017-06-06] MEDS: glipiZIDE 10 MG TABLET PO SCH ×2 (08:10→17:13)
[2017-06-06] MEDS: ENALAPRIL 2.5 MG TABLET PO SCH (08:12)
[2017-06-06] MEDS: DOCUSATE SODIUM 100 MG CAPSULE PO SCH (08:13)
[2017-06-06] MEDS: HYDROCHLOROTHIAZIDE 12.5 MG CAPSULE PO SCH (08:20)
[2017-06-06] MEDS: METFORMIN HCL 500 MG TABLET PO SCH ×2 (08:20→17:12)
[2017-06-06] MEDS: FLUPHENAZINE HCL 5 MG TABLET PO SCH ×3 (08:20→20:30)
[2017-06-06] MEDS: AMLODIPINE 10 MG TABLET PO SCH (08:20)
[2017-06-06] MEDS: NICOTINE 7 MG/24HR PATCH TD SCH (08:21)
[2017-06-06] MEDS ORDERED: BLOOD SUGAR DIAGNOSTIC 1 EACH STRIP VI SCH (16:30)
[2017-06-06] MEDS ORDERED: DEXTROSE 50% 50 ML DISP.SYRIN IV PRN (16:30)
[2017-06-06] MEDS: BLOOD SUGAR DIAGNOSTIC 1 EACH STRIP VI SCH ×2 (16:30→20:37)
[2017-06-06] MEDS: INSULIN REGULAR, HUMAN 300 UNIT/3 ML VIAL SQ PRN (17:11)
[2017-06-06 17:44] VITALS: BP 136/81
[2017-06-06 19:50] VITALS: BP 96/75
[2017-06-06 20:29] VITALS: BP 102/78
[2017-06-06] MEDS: ATORVASTATIN 10 MG TABLET PO SCH (20:30)
[2017-06-06] MEDS: INSULIN REGULAR, HUMAN 300 UNITS/3 ML VIAL SQ PRN (20:45)
[2017-06-07] MEDS: BLOOD SUGAR DIAGNOSTIC 1 EACH STRIP VI SCH ×4 (06:15→20:45)
[2017-06-07 07:30] VITALS: BP 137/75
[2017-06-07] MEDS: METFORMIN HCL 500 MG TABLET PO SCH ×2 (08:25→17:29)
[2017-06-07] MEDS: FLUPHENAZINE HCL 5 MG TABLET PO SCH ×3 (08:27→20:44)
[2017-06-07] MEDS: glipiZIDE 10 MG TABLET PO SCH ×2 (08:27→17:29)
[2017-06-07] MEDS: DOCUSATE SODIUM 100 MG CAPSULE PO SCH (08:28)
[2017-06-07] MEDS: HYDROCHLOROTHIAZIDE 12.5 MG CAPSULE PO SCH (08:28)
[2017-06-07] MEDS: AMLODIPINE 10 MG TABLET PO SCH (08:29)
[2017-06-07] MEDS: ENALAPRIL 2.5 MG TABLET PO SCH (08:30)
[2017-06-07] MEDS: NICOTINE 7 MG/24HR PATCH TD SCH (08:34)
[2017-06-07 11:12] LABS: BILIRUBIN,TOTAL 0.3 mg/dL (0.2-1.0); CREATININE 0.8 mg/dL (0.6-1.3); POTASSIUM 4.4 mmol/L (3.5-5.1); TOTAL PROTEIN, SERUM 7.5 g/dL (6.4-8.2)
[2017-06-07] MEDS: INSULIN REGULAR, HUMAN 300 UNIT/3 ML VIAL SQ PRN ×2 (11:31→17:01)
[2017-06-07 16:16] VITALS: BP 145/70
[2017-06-07 19:55] VITALS: BP 135/57
[2017-06-07] MEDS: ATORVASTATIN 10 MG TABLET PO SCH (20:44)
[2017-06-07] MEDS: INSULIN REGULAR, HUMAN 300 UNITS/3 ML VIAL SQ PRN (20:49)
[2017-06-08] MEDS: BLOOD SUGAR DIAGNOSTIC 1 EACH STRIP VI SCH ×4 (06:18→20:37)
[2017-06-08 07:30] VITALS: BP 141/59
[2017-06-08] MEDS: AMLODIPINE 10 MG TABLET PO SCH (08:06)
[2017-06-08] MEDS: HYDROCHLOROTHIAZIDE 12.5 MG CAPSULE PO SCH (08:06)
[2017-06-08] MEDS: DOCUSATE SODIUM 100 MG CAPSULE PO SCH (08:06)
[2017-06-08] MEDS: METFORMIN HCL 500 MG TABLET PO SCH ×2 (08:06→17:00)
[2017-06-08] MEDS: FLUPHENAZINE HCL 5 MG TABLET PO SCH ×2 (08:06→12:10)
[2017-06-08] MEDS: ENALAPRIL 2.5 MG TABLET PO SCH (08:07)
[2017-06-08] MEDS: glipiZIDE 10 MG TABLET PO SCH ×2 (08:07→17:00)
[2017-06-08] MEDS: INSULIN REGULAR, HUMAN 300 UNIT/3 ML VIAL SQ PRN ×3 (08:10→16:35)
[2017-06-08] MEDS: NICOTINE 7 MG/24HR PATCH TD SCH (08:15)
[2017-06-08 16:01] VITALS: BP 139/64
[2017-06-08 20:00] VITALS: BP 134/79
[2017-06-08] MEDS: ATORVASTATIN 10 MG TABLET PO SCH (20:34)
[2017-06-08] MEDS ORDERED: FLUPHENAZINE HCL 1 MG TABLET PO SCH (21:00)
[2017-06-08] MEDS ORDERED: FLUPHENAZINE HCL 5 MG TABLET PO SCH (21:00)
[2017-06-09] MEDS: BLOOD SUGAR DIAGNOSTIC 1 EACH STRIP VI SCH ×4 (06:36→20:41)
[2017-06-09 07:30] VITALS: BP 119/58
[2017-06-09] MEDS: NICOTINE 7 MG/24HR PATCH TD SCH (09:25)
[2017-06-09] MEDS: FLUPHENAZINE HCL 5 MG TABLET PO SCH ×3 (09:26→20:46)
[2017-06-09] MEDS: METFORMIN HCL 500 MG TABLET PO SCH ×2 (09:26→17:02)
[2017-06-09] MEDS: DOCUSATE SODIUM 100 MG CAPSULE PO SCH (09:26)
[2017-06-09] MEDS: glipiZIDE 10 MG TABLET PO SCH ×2 (09:26→17:02)
[2017-06-09] MEDS: ENALAPRIL 2.5 MG TABLET PO SCH (09:27)
[2017-06-09] MEDS: AMLODIPINE 10 MG TABLET PO SCH (09:28)
[2017-06-09] MEDS: HYDROCHLOROTHIAZIDE 12.5 MG CAPSULE PO SCH (09:28)
[2017-06-09] MEDS: INSULIN REGULAR, HUMAN 300 UNIT/3 ML VIAL SQ PRN (11:38)
[2017-06-09 15:32] VITALS: BP 122/60
[2017-06-09 20:30] VITALS: BP 112/54
[2017-06-09] MEDS: ATORVASTATIN 10 MG TABLET PO SCH (20:46)
[2017-06-10] MEDS: BLOOD SUGAR DIAGNOSTIC 1 EACH STRIP VI SCH ×4 (06:32→21:32)
[2017-06-10 08:00] VITALS: BP 144/73
[2017-06-10] MEDS: INSULIN REGULAR, HUMAN 300 UNIT/3 ML VIAL SQ PRN ×3 (08:07→17:14)
[2017-06-10] MEDS: METFORMIN HCL 500 MG TABLET PO SCH ×2 (08:12→17:11)
[2017-06-10] MEDS: DOCUSATE SODIUM 100 MG CAPSULE PO SCH (08:12)
[2017-06-10] MEDS: NICOTINE 7 MG/24HR PATCH TD SCH (08:13)
[2017-06-10] MEDS: HYDROCHLOROTHIAZIDE 12.5 MG CAPSULE PO SCH (08:13)
[2017-06-10] MEDS: FLUPHENAZINE HCL 5 MG TABLET PO SCH ×3 (08:13→21:32)
[2017-06-10] MEDS: AMLODIPINE 10 MG TABLET PO SCH (08:13)
[2017-06-10] MEDS: ENALAPRIL 2.5 MG TABLET PO SCH (08:14)
[2017-06-10] MEDS: glipiZIDE 10 MG TABLET PO SCH ×2 (08:14→17:12)
[2017-06-10 16:00] VITALS: BP 100/52
[2017-06-10 20:00] VITALS: BP 134/58
[2017-06-10] MEDS: ATORVASTATIN 10 MG TABLET PO SCH (21:32)
[2017-06-11] MEDS: BLOOD SUGAR DIAGNOSTIC 1 EACH STRIP VI SCH ×2 (06:36→12:33)
[2017-06-11 07:30] VITALS: BP 138/72
[2017-06-11 07:35] LABS: BASOPHILS % (AUTO) 0.7 % (0.0-2.0); EOSINOPHILS # (AUTO) 0.1 K/uL (0.0-0.7); EOSINOPHILS % (AUTO) 2.2 % (0.0-7.0); HEMATOCRIT 42.1 % (36.7-47.1); HEMOGLOBIN 14.5 g/dL (12.5-16.3); LYMPHOCYTES # (AUTO) 0.9 K/uL (20.0-40.0); LYMPHOCYTES % (AUTO) 15.2 % (20.5-51.5); MEAN CORPUSCULAR HEMOGLOBIN 30.3 uug (23.8-33.4); MEAN CORPUSCULAR HGB CONC 34 g/dL (32.5-36.3); MEAN CORPUSCULAR VOLUME 88.1 fL (73.0-96.2); MONOCYTES # (AUTO) 0.8 K/uL (2.0-10.0); MONOCYTES % (AUTO) 13.1 % (0.0-11.0); NEUTROPHILS # (AUTO) 4.2 K/uL (1.8-8.9); NEUTROPHILS % (AUTO) 68.8 % (38.5-71.5); PLATELET COUNT (AUTO) 318 K/uL (152-348); RED BLOOD CELL COUNT(AUTO) 4.78 MIL/uL (4.06-5.63); WHITE BLOOD COUNT (AUTO) 6.1 K/uL (3.6-10.2)
[2017-06-11 08:18] LABS: BILIRUBIN,TOTAL 0.3 mg/dL (0.2-1.0); CREATININE 0.7 mg/dL (0.6-1.3); MAGNESIUM 2.1 mg/dL (1.8-2.4); PHOSPHOROUS 2.8 mg/dL (2.5-4.9); POTASSIUM 3.6 mmol/L (3.5-5.1); TOTAL PROTEIN, SERUM 7.4 g/dL (6.4-8.2)
[2017-06-11 08:27] LABS: THYROID STIMULATING HORMONE 1.758 mIU/mL (0.358-3.740)
[2017-06-11] MEDS: FLUPHENAZINE HCL 5 MG TABLET PO SCH ×2 (10:25→12:33)
[2017-06-11] MEDS: AMLODIPINE 10 MG TABLET PO SCH (10:26)
[2017-06-11] MEDS: DOCUSATE SODIUM 100 MG CAPSULE PO SCH (10:26)
[2017-06-11] MEDS: HYDROCHLOROTHIAZIDE 12.5 MG CAPSULE PO SCH (10:26)
[2017-06-11] MEDS: glipiZIDE 10 MG TABLET PO SCH (10:26)
[2017-06-11] MEDS: METFORMIN HCL 500 MG TABLET PO SCH (10:26)
[2017-06-11 10:27] VITALS: BP 132/72
[2017-06-11] MEDS: ENALAPRIL 2.5 MG TABLET PO SCH (10:27)
[2017-06-11] MEDS: NICOTINE 7 MG/24HR PATCH TD SCH (10:27)
[2017-06-11] MEDS: INSULIN REGULAR, HUMAN 300 UNIT/3 ML VIAL SQ PRN (12:34)
[2017-06-11] MEDS ORDERED: INSULIN GLARGINE,HUM 300 UNITS/3 ML CARTRIDGE SQ SCH (21:00)
== END 2017-06-11 15:00 | DRG 885 ==
LOC: ER 21:47 → GPS 23:25
PROVIDERS: ADMIT Psychiatry & Neurology Psychosomatic Medicine; ATTEND Hospitalist
DX: F25.0 Schizoaffective disorder, bipolar type (principal); E11.65 Type 2 diabetes mellitus with hyperglycemia; E87.2 Acidosis; E87.1 Hypo-osmolality and hyponatremia; J44.9 Chronic obstructive pulmonary disease, unspecified; E78.5 Hyperlipidemia, unspecified; Z79.84 Long term (current) use of oral hypoglycemic drugs; I10 Essential (primary) hypertension; F17.200 Nicotine dependence, unspecified, uncomplicated; F09 Unspecified mental disorder due to known physiological condition; R74.0 Nonspecific elevation of levels of transaminase and lactic acid dehydrogenase [LDH]; F41.9 Anxiety disorder, unspecified
CPT/HCPCS: 36415; 70030-TC; 70450; 71045; 80307; 83605; 83735; 84100; 84443; 85025; 85730; 87040; 87086; 93005; A4663; A9150; G0480; G0480-TC; J1815